=== PATIENT | male | born 1990 | race Caucasian/White ===

== ENCOUNTER → 2016-11-30 19:55 | Emergency (ER) | payer OTHER ==
[~2016-11-30 19:55] MED LIST: Cephalexin CAP* 500 MG PO ONE; Mupirocin 2% OINT* TUBE TOPICAL ONE
[2016-11-30 21:41] VITALS: BP 139/64
--- NOTE | 2016-11-30 21:55 | UC ---
Throat Pain/Nasal Raoul HPI - HPI Summary HPI Summary: left nare pain swelling and redness for 2 days - History of Current Complaint Chief Complaint: UCGeneralIllness Stated Complaint: NASAL AND THROAT PAIN Time Seen by Provider: 11/30/16 21:36 Hx Obtained From: Patient Onset/Duration: Sudden Onset, Lasting Days - 2 Severity: Moderate Pain Intensity: 5 Pain Scale Used: 0-10 Numeric Cough: None Associated Signs & Symptoms: Positive: Negative - Allergies/Home Medications Allergies/Adverse Reactions: Allergies Allergy/AdvReac Type Severity Reaction Status Date / Time No Known Allergies Allergy Verified 11/30/16 21:41 Home Medications: Home Medications Ibuprofen TAB* [Advil TAB*] 400 mg PO Q8H PRN 11/30/16 [History Confirmed ] PMH/Surg Hx/FS Hx/Imm Hx Previously Healthy: Yes - Surgical History Surgical History: Yes Surgery Procedure, Year, and Place: T&A - Family History Known Family History: Positive: None - Social History Occupation: Employed Full-time Lives: With Family Alcohol Use: Weekly Substance Use Type: None Smoking Status (MU): Light Every Day Tobacco Smoker Type: Cigarettes Amount Used/How Often: 1 cigarette every 2 days Cessation Counseling: Patient Advised to Stop Review of Systems Constitutional: Negative Skin: Other - pain redness left nare radiating in to left cheek Eyes: Negative ENT: Negative Respiratory: Negative Cardiovascular: Negative Gastrointestinal: Negative Genitourinary: Negative Motor: Negative Neurovascular: Negative Musculoskeletal: Negative Neurological: Negative Psychological: Negative All Other Systems Reviewed And Are Negative: Yes Physical Exam Triage Information Reviewed: Yes Appearance: Well-Appearing, No Pain Distress, Well-Nourished Vital Signs: Initial Vital Signs Temp 98.4 F 11/30/16 21:37 Pulse 89 11/30/16 21:37 Resp 16 11/30/16 21:37 BP 139/64 11/30/16 21:37 Pulse Ox 100 11/30/16 21:37 Vital Signs Reviewed: Yes Eye Exam: Normal Eyes: Positive: Conjunctiva Clear ENT Exam: Normal ENT: Positive: Normal ENT inspection, Hearing grossly normal, Pharynx normal, TMs normal. Negative: Nasal congestion, Nasal drainage, Tonsillar swelling, Tonsillar exudate, Trismus, Muffled/hoarse voice Dental Exam: Normal Neck exam: Normal Neck: Positive: Supple, Nontender, No Lymphadenopathy Respiratory Exam: Normal Respiratory: Positive: Chest non-tender, No respiratory distress, No accessory muscle use Cardiovascular Exam: Normal Cardiovascular: Positive: RRR, Pulses Normal, Brisk Capillary Refill Musculoskeletal Exam: Normal Musculoskeletal: Positive: Strength Intact, ROM Intact, No Edema Neurological Exam: Normal Neurological: Positive: Alert, Muscle Tone Normal Psychological Exam: Normal Skin Exam: Other Skin: Positive: breakdown - small open area inside lateral left nare with erythema Throat Pain/Nasal Course/Dx - Course Assessment/Plan: Bactroban, keflex, gental soap and water wash warm compresses follow with pcp prn - Differential Dx/Diagnosis Differential Diagnosis/HQI/PQRI: Sinusitis, URI, Other - cellulitis Provider Diagnoses: Cellulitis left lateral nare Discharge - Discharge Plan Condition: Stable Disposition: HOME Prescriptions: Cephalexin CAP* [Keflex CAP*] 500 mg PO TID #20 cap Patient Education Materials: Cellulitis (ED) Referrals: Cory Hidalgo MD [Primary Care Provider] - If Needed
== END | disposition home or self-care (01) ==
LOC: UCCORT 19:55
DX: J34.0 Abscess, furuncle and carbuncle of nose (principal); F17.210 Nicotine dependence, cigarettes, uncomplicated
CPT/HCPCS: 99212; A9270-GY; G0463

== ENCOUNTER 2019-02-19 19:58 | Emergency (ER) | payer OTHER ==
[2019-02-19 20:18] VITALS: BP 143/74
--- NOTE | 2019-02-19 20:43 | UC ---
[facility] Dental HPI - HPI Summary HPI Summary: Pt c/o worsening canker sore on right lower lip that began 5 days ago. - History of Current Complaint Chief Complaint: Jose A Stated Complaint: SORE IN MOUTH Time Seen by Provider: 02/19/19 20:33 Hx Obtained From: Patient Onset/Duration: Sudden Onset, Lasting Days, Still Present, Worse Since - osnet Severity: Moderate Pain Intensity: 8 Aggravating Factor(s): Heat, Cold, Chewing Alleviating Factor(s): Nothing Related History: Swelling - Allergies/Home Medications Allergies/Adverse Reactions: Allergies Allergy/AdvReac Type Severity Reaction Status Date / Time No Known Allergies Allergy Verified 02/19/19 20:13 PMH/Surg Hx/FS Hx/Imm Hx Previously Healthy: Yes - Surgical History Surgical History: Yes Surgery Procedure, Year, and Place: T&A - Family History Known Family History: Positive: Cardiac Disease - Social History Occupation: Employed Full-time Lives: With Family Alcohol Use: Occasionally Substance Use Type: None Smoking Status (MU): Light Every Day Tobacco Smoker Type: eCigarettes Amount Used/How Often: intermittent - Immunization History Vaccination Up to Date: No Review of Systems All Other Systems Reviewed And Are Negative: Yes Constitutional: Positive: Negative Skin: Positive: Negative Eyes: Positive: Negative ENT: Positive: Other - canker sore right lower lip Respiratory: Positive: Negative Cardiovascular: Positive: Negative Gastrointestinal: Positive: Negative Genitourinary: Positive: Negative Motor: Positive: Negative Neurovascular: Positive: Negative Musculoskeletal: Positive: Negative Neurological: Positive: Negative Psychological: Positive: Negative Is Patient Immunocompromised?: No Physical Exam Triage Information Reviewed: Yes Appearance: Well-Appearing Vital Signs: Initial Vital Signs Temp 98.6 F 02/19/19 20:14 Pulse 79 02/19/19 20:14 Resp 15 02/19/19 20:14 BP 143/74 02/19/19 20:14 Pulse Ox 100 02/19/19 20:14 Vital Signs Reviewed: Yes Eye Exam: Normal ENT: Positive: Other - right lower lip mild swelling Dental: Positive: Other: - ulceration right lower lip, nickel size Neck: Positive: Enlarged Nodes @ - submental Respiratory Exam: Normal Respiratory: Positive: Respiratory distress Musculoskeletal Exam: Normal Neurological Exam: Normal Psychological Exam: Normal Skin Exam: Normal Dental Complaint Course/Dx - Differential Dx/Diagnosis Differential Diagnosis/Dx: Dental Abscess Provider Diagnosis: Canker sore Discharge - Sign-Out/Discharge Documenting (check all that apply): Patient Departure All imaging exams completed and their final reports reviewed: No Studies - Discharge Plan Condition: Stable Disposition: HOME Prescriptions: Lidocaine 2% VISCOUS* [Xylocaine 2% Viscous*] 15 ml SWISH SPIT Q4H PRN #1 btl PRN Reason: Pain - Mild ValACYclovir (*) [Valtrex 1 GM(*)] 1 gm PO Q12H #14 tab Patient Education Materials: Canker Sores (ED) Referrals: Cory Hidalgo MD [Primary Care Provider] - If Needed - Billing Disposition and Condition Condition: STABLE Disposition: Home
[2019-02-19] MEDS ORDERED: Acyclovir* 200 MG CAP PO ONE (20:46)
== END 2019-02-19 20:58 | disposition home or self-care (01) ==
LOC: UCCORT 19:58
DX: K12.0 Recurrent oral aphthae (principal); F17.290 Nicotine dependence, other tobacco product, uncomplicated
CPT/HCPCS: 99212; A9270-GY; G0463

== ENCOUNTER 2019-05-14 08:51 | Emergency (ER) | payer OTHER ==
[2019-05-14 09:03] VITALS: BP 148/79
--- NOTE | 2019-05-14 09:22 | UC ---
Skin Complaint HPI - HPI Summary HPI Summary: 28-year-old male comes in with a chief complaint of a rash on the right side of his abdomen. Several days ago started out with what he thought was a spider bite. Since then ring of erythema has increased around the original insult. No fevers no chills feels well otherwise. No history of MRSA however his does have MRSA. Did not see any ticks. His had a similar spider bite lesion that has since become infected and is being treated by her primary care doctor and it's positive for MRSA. - History of Current Complaint Chief Complaint: UCSkin Time Seen by Provider: 05/14/19 09:09 Stated Complaint: INSECT BITE Pain Intensity: 2 - Allergy/Home Medications Allergies/Adverse Reactions: Allergies Allergy/AdvReac Type Severity Reaction Status Date / Time No Known Allergies Allergy Verified 05/14/19 09:04 PMH/Surg Hx/FS Hx/Imm Hx Previously Healthy: Yes - Surgical History Surgical History: Yes Surgery Procedure, Year, and Place: T&A - Family History Known Family History: Positive: None, Cardiac Disease - Social History Alcohol Use: Occasionally Substance Use Type: None Smoking Status (MU): Light Every Day Tobacco Smoker Type: eCigarettes Amount Used/How Often: intermittent - Immunization History Vaccination Up to Date: No Review of Systems All Other Systems Reviewed And Are Negative: Yes Constitutional: Positive: Negative Skin: Positive: Other - SEE HPI Eyes: Positive: Negative ENT: Positive: Negative Respiratory: Positive: Negative Cardiovascular: Positive: Negative Gastrointestinal: Positive: Negative Motor: Positive: Negative Neurovascular: Positive: Negative Musculoskeletal: Positive: Negative Neurological: Positive: Negative Psychological: Positive: Negative Is Patient Immunocompromised?: No Physical Exam Triage Information Reviewed: Yes Appearance: Well-Appearing, No Pain Distress, Well-Nourished Vital Signs: Initial Vital Signs Temp 97.9 F 05/14/19 09:00 Pulse 77 05/14/19 09:00 Resp 16 05/14/19 09:00 BP 148/79 05/14/19 09:00 Pulse Ox 100 05/14/19 09:00 Vital Signs Reviewed: Yes Eye Exam: Normal Eyes: Positive: Conjunctiva Clear Neck: Positive: Supple Respiratory: Positive: No respiratory distress Musculoskeletal: Positive: Strength Intact, ROM Intact Neurological: Positive: Alert, Muscle Tone Normal Psychological: Positive: Age Appropriate Behavior Skin: Positive: Other - On the right abdomen there is a 5 mm slightly raised darkly erythematous lesion that either looks like an insect bite or a folliculitis. There is surrounding blanching erythema 3 cm x 4 cm consistent with cellulitis. Course/Dx - Diagnoses Provider Diagnosis: Cellulitis of right abdominal wall Discharge ED - Sign-Out/Discharge Documenting (check all that apply): Patient Departure All imaging exams completed and their final reports reviewed: No Studies - Discharge Plan Condition: Stable Disposition: HOME Prescriptions: DOXYcycline CAP(*) [DOXYcycline 100MG CAP(*)] 100 mg PO BID #20 cap Patient Education Materials: Cellulitis (ED) Referrals: Cory Hidalgo MD [Primary Care Provider] - Additional Instructions: FOLLOW UP WITH YOUR DOCTOR IF NOT COMPLETELY IMPROVED. GET REEVALUATED SOONER IF NOT IMPROVING OR YOUR CONDITION WORSENS; FEVER, SPREAD OF INFECTION, YOU FEEL ILL OR ANY QUESTIONS OR CONCERNS. - Billing Disposition and Condition Condition: STABLE Disposition: Home
== END 2019-05-14 09:29 | disposition home or self-care (01) ==
LOC: UCCORT 08:51
DX: L03.311 Cellulitis of abdominal wall (principal); F17.290 Nicotine dependence, other tobacco product, uncomplicated
CPT/HCPCS: 99212; G0463